=== PATIENT | female | born 1950 | race Caucasian/White ===

== ENCOUNTER 2017-10-19 04:56 | Observation (INO) | payer MEDICARE, OTHER ==
[2017-10-19] MEDS: SOD CHLORIDE 0.9% 1,000 ML IV (06:33)
[2017-10-19] MEDS: LORAZEPAM 2 MG INJ IV (06:33)
[2017-10-19] MEDS: MECLIZINE 12.5 MG TAB PO ×3 (06:33→20:35)
[2017-10-19] MEDS: ONDANSETRON 4 MG INJ IV ×2 (06:33→16:50)
[2017-10-19 06:36] LABS: ADD MAN DIFF? NO
[2017-10-19 06:38] LABS: WHITE BLOOD COUNT 4.1 10^3/ul (4.8-10.8)
[2017-10-19 06:38] LABS: BASOPHILS % 0.7 % (0.0-2.0); EOSINOPHILS # 0.1 10^3/ul (0.0-0.5); EOSINOPHILS % 1.7 % (0.0-7.0); HEMATOCRIT 39.3 % (37.0-47.0); HEMOGLOBIN 13.2 g/dl (12.0-16.0); LYMPHOCYTES # 1.4 10^3/ul (0.8-2.9); LYMPHOCYTES % 34.8 % (15.0-51.0); MEAN CORPUSCULAR HEMOGLOBIN 28.4 pg (29.0-33.0); MEAN CORPUSCULAR HGB CONC 33.6 g/dl (32.0-37.0); MEAN CORPUSCULAR VOLUME 84.5 fl (82.0-101.0); MEAN PLATELET VOLUME 9.2 fl (7.4-10.4); MONOCYTE # 0.3 10^3/ul (0.3-0.9); MONOCYTES % 6.8 % (0.0-11.0); NEUTROPHIL # 2.3 10^3/ul (1.6-7.5); NEUTROPHILS % 55.8 % (39.0-77.0); PLATELET COUNT 241 10^3/UL (140-415); RED BLOOD COUNT 4.65 10^6/ul (4.20-5.40); RED CELL DISTRIBUTION WIDTH 13.3 % (11.5-14.5)
[2017-10-19 06:56] LABS: ANION GAP 11 (8-16); BLOOD UREA NITROGEN 13 mg/dl (7-20); CALCIUM 9.3 mg/dl (8.4-10.2); CARBON DIOXIDE 21 mmol/L (21-31); CHLORIDE 111 mmol/L (97-110); CREATININE 0.66 mg/dl (0.44-1.00); GLUCOSE 150 mg/dl (70-220); POTASSIUM 3.3 mmol/L (3.5-5.1); SODIUM 140 mmol/L (135-144)
[2017-10-19 06:57] LABS: INR 1.03; PROTIME 13.6 Sec (11.9-14.9); PT RATIO 1.1
[2017-10-19 06:58] LABS: PARTIAL THROMBOPLASTIN TIME 24.8 Sec (25.0-35.0)
[2017-10-19 07:29] LABS: ALANINE AMINOTRANSFERASE 22 IU/L (13-69); ALBUMIN 4.1 g/dl (3.3-4.9); ALKALINE PHOSPHATASE 51 IU/L (42-121); ASPARTATE AMINO TRANSFERASE 21 IU/L (15-46); BILIRUBIN,INDIRECT 0.8 mg/dl (0-1.1); BILIRUBIN,TOTAL 0.8 mg/dl (0.2-1.3); LIPASE 131 U/L (23-300); TOTAL PROTEIN 8.2 g/dl (6.1-8.1)
[2017-10-19] MEDS ORDERED: ACETAMINOPHEN 325 MG TAB PO ×2 (09:00→09:30)
[2017-10-19] MEDS ORDERED: ONDANSETRON 4 MG INJ IV (09:30)
[2017-10-19] MEDS ORDERED: NACL 0.9% 3 ML SYG IV (09:30)
[2017-10-19] MEDS ORDERED: MAGNESIUM HYDROXIDE 30ML CUP PO (09:30)
[2017-10-19] MEDS ORDERED: DOCUSATE SODIUM 100 MG CAP PO (09:30)
[2017-10-19] MEDS: ASPIRIN (EC) 325 MG TAB PO (11:29)
[2017-10-19] MEDS: AMOXICILLIN/CLAV 875 MG TAB PO ×2 (11:29→20:35)
[2017-10-19] MEDS: D5W-0.45 NACL + KCL 20 MEQ 1,000 ML IV (11:29)
[2017-10-19] MEDS: METOCLOPRAMIDE 10 MG INJ IV ×2 (11:29→19:45)
[2017-10-19] MEDS: POTASSIUM CHLORIDE (SR) 20 MEQ TAB PO (16:50)
[2017-10-19] MEDS ORDERED: PAROXETINE 10 MG TAB PO (21:00)
[2017-10-20] MEDS: PANTOPRAZOLE (EC) 40 MG TAB PO (05:47)
[2017-10-20 06:09] LABS: ADD MAN DIFF? NO
[2017-10-20 06:23] LABS: BASOPHILS % 0.3 % (0.0-2.0); EOSINOPHILS # 0.1 10^3/ul (0.0-0.5); EOSINOPHILS % 1.2 % (0.0-7.0); HEMATOCRIT 40.4 % (37.0-47.0); HEMOGLOBIN 13.2 g/dl (12.0-16.0); LYMPHOCYTES % 33.5 % (15.0-51.0); MEAN CORPUSCULAR HEMOGLOBIN 28.3 pg (29.0-33.0); MEAN CORPUSCULAR HGB CONC 32.7 g/dl (32.0-37.0); MEAN CORPUSCULAR VOLUME 86.7 fl (82.0-101.0); MEAN PLATELET VOLUME 9.2 fl (7.4-10.4); MONOCYTE # 0.5 10^3/ul (0.3-0.9); MONOCYTES % 7.4 % (0.0-11.0); NEUTROPHIL # 3.5 10^3/ul (1.6-7.5); NEUTROPHILS % 57.3 % (39.0-77.0); PLATELET COUNT 258 10^3/UL (140-415); RED BLOOD COUNT 4.66 10^6/ul (4.20-5.40)
[2017-10-20 06:23] LABS: WHITE BLOOD COUNT 6.1 10^3/ul (4.8-10.8)
[2017-10-20 07:07] LABS: ANION GAP 8 (8-16); BLOOD UREA NITROGEN 7 mg/dl (7-20); CALCIUM 9.1 mg/dl (8.4-10.2); CARBON DIOXIDE 27 mmol/L (21-31); CHLORIDE 112 mmol/L (97-110); CREATININE 0.75 mg/dl (0.44-1.00); GLUCOSE 95 mg/dl (70-220); MAGNESIUM 1.9 mg/dl (1.7-2.5); PHOSPHORUS 3.3 mg/dl (2.5-4.9); POTASSIUM 5.2 mmol/L (3.5-5.1); SODIUM 142 mmol/L (135-144)
[2017-10-20] MEDS: AMOXICILLIN/CLAV 875 MG TAB PO ×2 (08:20→20:18)
[2017-10-20] MEDS: MECLIZINE 12.5 MG TAB PO ×3 (08:21→20:18)
[2017-10-20] MEDS: ASPIRIN (EC) 81 MG TAB PO (08:21)
[2017-10-21] MEDS: PANTOPRAZOLE (EC) 40 MG TAB PO (06:10)
[2017-10-21] MEDS: MECLIZINE 12.5 MG TAB PO ×2 (09:08→12:27)
[2017-10-21] MEDS: ASPIRIN (EC) 81 MG TAB PO (09:08)
[2017-10-21] MEDS: AMOXICILLIN/CLAV 875 MG TAB PO (09:08)
== END 2017-10-21 13:05 | disposition home health service (06) ==
LOC: E/R 04:56 → MS2 09:00
DX: R42 Dizziness and giddiness (principal); R11.2 Nausea with vomiting, unspecified; I10 Essential (primary) hypertension; N63.0 Unspecified lump in unspecified breast; K11.5 Sialolithiasis; E87.5 Hyperkalemia
CPT/HCPCS: 36415; 70450; 70545; 70549; 70553; 74176; 76642; 80048; 80076; 83690; 83735; 84100; 85025; 85610; 85730; 93005; 96374; 96375; 97163; 97167; 99217; 99285-25

== ENCOUNTER 2018-02-24 14:58 | Inpatient (IN) | payer MEDICARE, OTHER ==
[2018-02-24] MEDS: SOD CHLORIDE 0.9% 1,000 ML IV ×2 (15:44→18:20)
[2018-02-24] MEDS: ONDANSETRON 4 MG INJ IV (15:44)
[2018-02-24] MEDS: LIDOCAINE/MYLANTA 40 ML BTL PO (15:44)
[2018-02-24] MEDS: PANTOPRAZOLE 40 MG INJ IV (15:44)
[2018-02-24 15:52] LABS: ADD MAN DIFF? NO
[2018-02-24 15:53] LABS: WHITE BLOOD COUNT 10.8 10^3/ul (4.8-10.8)
[2018-02-24 15:53] LABS: BASOPHILS % 0.2 % (0.0-2.0); EOSINOPHILS % 0.2 % (0.0-7.0); HEMATOCRIT 44.6 % (37.0-47.0); HEMOGLOBIN 14.4 g/dl (12.0-16.0); LYMPHOCYTES # 1.3 10^3/ul (0.8-2.9); LYMPHOCYTES % 11.9 % (15.0-51.0); MEAN CORPUSCULAR HEMOGLOBIN 28.1 pg (29.0-33.0); MEAN CORPUSCULAR HGB CONC 32.3 g/dl (32.0-37.0); MEAN CORPUSCULAR VOLUME 87.1 fl (82.0-101.0); MEAN PLATELET VOLUME 9.4 fl (7.4-10.4); MONOCYTE # 0.5 10^3/ul (0.3-0.9); MONOCYTES % 4.7 % (0.0-11.0); NEUTROPHIL # 8.9 10^3/ul (1.6-7.5); NEUTROPHILS % 82.8 % (39.0-77.0); PLATELET COUNT 199 10^3/UL (140-415); RED BLOOD COUNT 5.12 10^6/ul (4.20-5.40); RED CELL DISTRIBUTION WIDTH 14.7 % (11.5-14.5)
[2018-02-24 16:12] LABS: ALANINE AMINOTRANSFERASE 42 IU/L (13-69); ALBUMIN 3.8 g/dl (3.3-4.9); ALBUMIN/GLOBULIN RATIO 0.84; ALKALINE PHOSPHATASE 57 IU/L (42-121); ANION GAP 10 (5-13); ASPARTATE AMINO TRANSFERASE 100 IU/L (15-46); BILIRUBIN,INDIRECT 0.8 mg/dl (0-1.1); BILIRUBIN,TOTAL 0.8 mg/dl (0.2-1.3); BLOOD UREA NITROGEN 16 mg/dl (7-20); CALCIUM 9.6 mg/dl (8.4-10.2); CARBON DIOXIDE 23 mmol/L (21-31); CHLORIDE 108 mmol/L (97-110); CREATININE 0.69 mg/dl (0.44-1.00); GLUCOSE 135 mg/dl (70-220); POTASSIUM 5.4 mmol/L (3.5-5.1); SODIUM 141 mmol/L (135-144); TOTAL PROTEIN 8.3 g/dl (6.1-8.1)
[2018-02-24 16:24] LABS: TROPONIN-I < 0.012 ng/ml (0.000-0.120)
[2018-02-24 16:47] LABS: LIPASE 40248 U/L (23-300)
[2018-02-24] MEDS: morphine 4 MG/ML VIAL IV (17:01)
[2018-02-24 17:03] LABS: ADD UMIC NO; UR ASCORBIC ACID NEGATIVE (NEGATIVE); UR BILIRUBIN (Dip) NEGATIVE (NEGATIVE); UR BLOOD (Dip) NEGATIVE (NEGATIVE); UR CLARITY CLEAR (CLEAR); UR COLOR YELLOW (YELLOW); UR GLUCOSE (Dip) NEGATIVE (NEGATIVE); UR KETONES (Dip) 1+ mg/dL (NEGATIVE); UR LEUKOCYTE ESTERASE (Dip) NEGATIVE Leu/ul (NEGATIVE); UR NITRITE (Dip) NEGATIVE (NEGATIVE); UR SPECIFIC GRAVITY (Dip) 1.025 (1.003-1.030); UR TOTAL PROTEIN (Dip) NEGATIVE (NEGATIVE); UR UROBILINOGEN (Dip) NEGATIVE (NEGATIVE)
[2018-02-24 17:14] LABS: LACTATE DEHYDROGENASE 760 IU/L (313-618)
[2018-02-24] MEDS ORDERED: ONDANSETRON 4 MG INJ IV (17:30)
[2018-02-24] MEDS ORDERED: ACETAMINOPHEN 325 MG TAB PO ×2 (17:30→18:00)
[2018-02-24] MEDS ORDERED: HYDROCODONE/APAP (5/325) TAB PO (18:00)
[2018-02-24] MEDS ORDERED: NACL 0.9% 3 ML SYG IV (18:00)
[2018-02-24] MEDS: SOD CHLORIDE 0.9% 100 ML (18:04)
[2018-02-24] MEDS: IOHEXOL 300MG/ML 150 ML BTL (18:05)
[2018-02-24] MEDS: SODIUM CHLORIDE 0.9% 1L BAG IV* (18:21)
[2018-02-24 18:39] LABS: HAAIG REFLEX REFLEX FILED
[2018-02-24 19:06] LABS: CHOLESTEROL 205 mg/dl (100-200); LACTIC ACID 1.3 mmol/L (0.5-2.0)
[2018-02-24 19:06] LABS: CHOL/HDL RATIO 3.7 RATIO; HDL CHOLESTEROL 55 mg/dl (33-92); LDL CHOLESTEROL,CALCULATED 134 mg/dl; TRIGLYCERIDES 79 mg/dl (0-149)
[2018-02-24 19:28] LABS: ETHANOL < 10.0 mg/dl
[2018-02-24 19:32] LABS: AMPHETAMINE/METHAMPHETAMINE Negative (NEGATIVE); BARBITURATES Negative (NEGATIVE); BENZODIAZEPINES Negative (NEGATIVE); CANNABINOIDS Negative (NEGATIVE); COCAINE Negative (NEGATIVE); OPIATES Negative (NEGATIVE)
[2018-02-24 19:38] LABS: HEPATITIS B SURFACE ANTIGEN NEGATIVE (NEGATIVE)
[2018-02-24 19:48] LABS: HIV 1&2 ANTIBODY NEGATIVE (NEGATIVE)
[2018-02-24 19:56] LABS: HEPATITIS B CORE ANTIBODY NEGATIVE (NEGATIVE); HEPATITIS C VIRAL ANTIBODY NEGATIVE (NEGATIVE)
[2018-02-24] MEDS: PIPER-TAZO 3.375 GM IV (PMX) 100 ML IVPB (20:13)
[2018-02-24] MEDS: morphine 2 MG INJ IV (21:39)
[2018-02-24] MEDS ORDERED: MEROPENEM 1 GM/50ML(PMX) 50 ML IVPB (22:00)
[2018-02-25] MEDS: SOD CHLORIDE 0.9% 1,000 ML IV ×4 (00:11→17:35)
[2018-02-25] MEDS: ONDANSETRON 4 MG INJ IV ×2 (00:30→13:59)
[2018-02-25] MEDS: PIPER-TAZO 3.375 GM IV (PMX) 100 ML IVPB ×4 (01:14→17:35)
[2018-02-25] MEDS ORDERED: hydrALAzine 20 MG INJ (04:20)
[2018-02-25] MEDS: hydrALAzine 20 MG INJ IV ×3 (04:30→22:31)
[2018-02-25 05:36] LABS: ADD MAN DIFF? NO
[2018-02-25 05:48] LABS: BASOPHILS % 0.1 % (0.0-2.0); HEMATOCRIT 41.8 % (37.0-47.0); HEMOGLOBIN 13.5 g/dl (12.0-16.0); LYMPHOCYTES # 1.1 10^3/ul (0.8-2.9); LYMPHOCYTES % 11.7 % (15.0-51.0); MEAN CORPUSCULAR HEMOGLOBIN 28.1 pg (29.0-33.0); MEAN CORPUSCULAR HGB CONC 32.3 g/dl (32.0-37.0); MEAN CORPUSCULAR VOLUME 86.9 fl (82.0-101.0); MEAN PLATELET VOLUME 9.8 fl (7.4-10.4); MONOCYTE # 0.4 10^3/ul (0.3-0.9); MONOCYTES % 4.5 % (0.0-11.0); NEUTROPHIL # 7.4 10^3/ul (1.6-7.5); PLATELET COUNT 184 10^3/UL (140-415); RED BLOOD COUNT 4.81 10^6/ul (4.20-5.40)
[2018-02-25] MEDS: morphine 2 MG INJ IV ×2 (06:01→13:58)
[2018-02-25] MEDS: PANTOPRAZOLE 40 MG INJ IV (06:01)
[2018-02-25 06:30] LABS: ALANINE AMINOTRANSFERASE 64 IU/L (13-69); ALBUMIN 3.6 g/dl (3.3-4.9); ALBUMIN/GLOBULIN RATIO 0.94; ALKALINE PHOSPHATASE 47 IU/L (42-121); ANION GAP 9 (5-13); ASPARTATE AMINO TRANSFERASE 73 IU/L (15-46); BILIRUBIN,INDIRECT 1.4 mg/dl (0-1.1); BILIRUBIN,TOTAL 1.4 mg/dl (0.2-1.3); BLOOD UREA NITROGEN 12 mg/dl (7-20); CALCIUM 8.4 mg/dl (8.4-10.2); CARBON DIOXIDE 22 mmol/L (21-31); CHLORIDE 112 mmol/L (97-110); CREATININE 0.64 mg/dl (0.44-1.00); GLUCOSE 115 mg/dl (70-220); MAGNESIUM 1.8 mg/dl (1.7-2.5); SODIUM 143 mmol/L (135-144); TOTAL PROTEIN 7.4 g/dl (6.1-8.1)
[2018-02-25 06:31] LABS: POTASSIUM 4.2 mmol/L (3.5-5.1)
[2018-02-25 06:45] LABS: LIPASE 6597 U/L (23-300)
[2018-02-26] MEDS: SOD CHLORIDE 0.9% 1,000 ML IV ×3 (00:26→09:07)
[2018-02-26] MEDS: PIPER-TAZO 3.375 GM IV (PMX) 100 ML IVPB ×4 (00:26→17:51)
[2018-02-26] MEDS: PANTOPRAZOLE 40 MG INJ IV (05:37)
[2018-02-26 06:33] LABS: ADD MAN DIFF? NO
[2018-02-26 06:38] LABS: WHITE BLOOD COUNT 15.8 10^3/ul (4.8-10.8)
[2018-02-26 06:38] LABS: BASOPHILS % 0.1 % (0.0-2.0); HEMATOCRIT 42.6 % (37.0-47.0); LYMPHOCYTES % 6.3 % (15.0-51.0); MEAN CORPUSCULAR HEMOGLOBIN 28.3 pg (29.0-33.0); MEAN CORPUSCULAR HGB CONC 32.9 g/dl (32.0-37.0); MEAN CORPUSCULAR VOLUME 86.2 fl (82.0-101.0); MEAN PLATELET VOLUME 10.3 fl (7.4-10.4); MONOCYTE # 0.9 10^3/ul (0.3-0.9); MONOCYTES % 5.8 % (0.0-11.0); NEUTROPHIL # 13.8 10^3/ul (1.6-7.5); NEUTROPHILS % 87.2 % (39.0-77.0); PLATELET COUNT 180 10^3/UL (140-415); RED BLOOD COUNT 4.94 10^6/ul (4.20-5.40); RED CELL DISTRIBUTION WIDTH 15.2 % (11.5-14.5)
[2018-02-26 07:06] LABS: ANION GAP 10 (5-13); BLOOD UREA NITROGEN 9 mg/dl (7-20); CALCIUM 8.6 mg/dl (8.4-10.2); CARBON DIOXIDE 19 mmol/L (21-31); CHLORIDE 107 mmol/L (97-110); CREATININE 0.57 mg/dl (0.44-1.00); Estimated GFR > 60 mL/min (>60); GLUCOSE 107 mg/dl (70-220); MAGNESIUM 1.6 mg/dl (1.7-2.5); PHOSPHORUS 2.4 mg/dl (2.5-4.9); POTASSIUM 3.5 mmol/L (3.5-5.1); SODIUM 136 mmol/L (135-144)
[2018-02-26 08:42] LABS: LIPASE 883 U/L (23-300)
[2018-02-26] MEDS ORDERED: POTASSIUM CHLORIDE 50 ML IVPB (10:00)
[2018-02-26] MEDS: DEXTROSE 5%-0.45% NACL 1,000 ML IV ×2 (11:08→17:51)
[2018-02-26] MEDS: MAGNESIUM SULFATE 2 GM/50 ML 50 ML IVPB (11:58)
[2018-02-26 14:49] LABS: PROTIME 16.4 Sec (11.9-14.9); PT RATIO 1.3
[2018-02-26 14:52] LABS: ALANINE AMINOTRANSFERASE 43 IU/L (13-69); ALBUMIN 3.3 g/dl (3.3-4.9); ALKALINE PHOSPHATASE 45 IU/L (42-121); ASPARTATE AMINO TRANSFERASE 35 IU/L (15-46); BILIRUBIN,INDIRECT 1.7 mg/dl (0-1.1); BILIRUBIN,TOTAL 1.7 mg/dl (0.2-1.3); TOTAL PROTEIN 6.9 g/dl (6.1-8.1)
[2018-02-26] MEDS: DEXTROSE 5% IV (14:57)
[2018-02-26] MEDS: POTASSIUM CHLORIDE IV (14:57)
[2018-02-26] MEDS: hydrALAzine 20 MG INJ IV (15:16)
[2018-02-26] MEDS: INDOMETHACIN 50 MG SUPP PR (16:00)
[2018-02-27] MEDS: PIPER-TAZO 3.375 GM IV (PMX) 100 ML IVPB ×4 (00:34→18:00)
[2018-02-27] MEDS: DEXTROSE 5%-0.45% NACL 1,000 ML IV ×4 (00:34→19:20)
[2018-02-27] MEDS: hydrALAzine 20 MG INJ IV (00:43)
[2018-02-27] MEDS: PANTOPRAZOLE 40 MG INJ IV (06:28)
[2018-02-27 06:43] LABS: ADD MAN DIFF? NO
[2018-02-27 06:51] LABS: BASOPHILS % 0.1 % (0.0-2.0); HEMATOCRIT 39.8 % (37.0-47.0); HEMOGLOBIN 13.5 g/dl (12.0-16.0); LYMPHOCYTES # 1.3 10^3/ul (0.8-2.9); LYMPHOCYTES % 8.3 % (15.0-51.0); MEAN CORPUSCULAR HEMOGLOBIN 28.3 pg (29.0-33.0); MEAN CORPUSCULAR HGB CONC 33.9 g/dl (32.0-37.0); MEAN CORPUSCULAR VOLUME 83.4 fl (82.0-101.0); MEAN PLATELET VOLUME 10.1 fl (7.4-10.4); MONOCYTE # 0.9 10^3/ul (0.3-0.9); MONOCYTES % 5.6 % (0.0-11.0); NEUTROPHIL # 13.8 10^3/ul (1.6-7.5); NEUTROPHILS % 85.4 % (39.0-77.0); PLATELET COUNT 213 10^3/UL (140-415); RED BLOOD COUNT 4.77 10^6/ul (4.20-5.40); RED CELL DISTRIBUTION WIDTH 15.1 % (11.5-14.5)
[2018-02-27 06:51] LABS: WHITE BLOOD COUNT 16.1 10^3/ul (4.8-10.8)
[2018-02-27 07:08] LABS: INR 1.23; PROTIME 15.7 Sec (11.9-14.9); PT RATIO 1.2
[2018-02-27 07:13] LABS: ALANINE AMINOTRANSFERASE 36 IU/L (13-69); ALKALINE PHOSPHATASE 50 IU/L (42-121); ASPARTATE AMINO TRANSFERASE 32 IU/L (15-46); BILIRUBIN,INDIRECT 1.5 mg/dl (0-1.1); BILIRUBIN,TOTAL 1.5 mg/dl (0.2-1.3); TOTAL PROTEIN 6.4 g/dl (6.1-8.1)
[2018-02-27 07:17] LABS: ANION GAP 9 (5-13); BLOOD UREA NITROGEN 8 mg/dl (7-20); CARBON DIOXIDE 22 mmol/L (21-31); CHLORIDE 103 mmol/L (97-110); Estimated GFR > 60 mL/min (>60); GLUCOSE 142 mg/dl (70-220); MAGNESIUM 2.1 mg/dl (1.7-2.5); PHOSPHORUS 1.3 mg/dl (2.5-4.9); SODIUM 134 mmol/L (135-144)
[2018-02-27 07:49] LABS: LIPASE 224 U/L (23-300)
[2018-02-27] MEDS: POTASSIUM CHLORIDE 100 ML IVPB ×4 (10:45→16:19)
[2018-02-27] MEDS: SODIUM PHOSPHATE 20 MEQ in SOD CHLORIDE 0.9% 250 ML IVPB (13:16)
[2018-02-27] MEDS ORDERED: IOHEXOL 300MG/ML 30 ML BTL (16:07)
[2018-02-27] MEDS ORDERED: PROPOFOL 20 ML (16:41)
[2018-02-27] MEDS ORDERED: MIDAZOLAM 1 MG/ML 2 ML INJ (16:41)
[2018-02-27] MEDS ORDERED: ROCURONIUM 50 MG INJ (16:41)
[2018-02-27] MEDS ORDERED: FENTAnyl 50 MCG/ML VIAL (16:41)
[2018-02-27] MEDS ORDERED: CEFAZOLIN 1 GM INJ (16:41)
[2018-02-27] MEDS ORDERED: FENTAnyl 50 MCG/ML VIAL IV ×2 (17:00)
[2018-02-27] MEDS ORDERED: HYDROmorphONE 1 MG/5 ML IV SYRINGE IV ×2 (17:00)
[2018-02-27] MEDS ORDERED: DIPHENHYDRAMINE 50 MG INJ IV (17:00)
[2018-02-27] MEDS ORDERED: ONDANSETRON 4 MG INJ IV (17:00)
[2018-02-27] MEDS ORDERED: EPHEDrine SULFATE 50 MG/5 ML SYG IV (17:00)
[2018-02-27] MEDS ORDERED: LABETALOL HCL 20MG INJ IV (17:00)
[2018-02-27] MEDS ORDERED: MEPERIDINE 25 MG INJ IV (17:00)
[2018-02-27] MEDS ORDERED: METOCLOPRAMIDE 10 MG INJ IV (17:00)
[2018-02-27] MEDS ORDERED: hydrALAzine 20 MG INJ IV (17:00)
[2018-02-27] MEDS ORDERED: DEXAMETHASONE 4 MG/ML 1 ML INJ (17:03)
[2018-02-27] MEDS ORDERED: METOCLOPRAMIDE 10 MG INJ (17:03)
[2018-02-27] MEDS ORDERED: ONDANSETRON 4 MG INJ (17:03)
[2018-02-27] MEDS ORDERED: KETOROLAC 30 MG INJ (17:03)
[2018-02-27] MEDS ORDERED: PHENYLephrine (100 MCG/ML) 5ML SYG (17:15)
[2018-02-27] MEDS ORDERED: PHENYLephrine 10 MG INJ (17:15)
[2018-02-27] MEDS ORDERED: SUGAMMADEX SODIUM 200 MG/2 ML VIAL IV (17:16)
[2018-02-27] MEDS: INDOMETHACIN 50 MG SUPP PR (17:30)
[2018-02-27] MEDS ORDERED: CEFAZOLIN 2 GM/50 ML (PMX) 50 ML IVPB (17:30)
[2018-02-28] MEDS: PIPER-TAZO 3.375 GM IV (PMX) 100 ML IVPB ×2 (01:14→05:58)
[2018-02-28] MEDS: DEXTROSE 5%-0.45% NACL 1,000 ML IV (03:40)
[2018-02-28] MEDS: PANTOPRAZOLE 40 MG INJ IV (05:58)
[2018-02-28 07:01] LABS: ADD MAN DIFF? NO
[2018-02-28 07:07] LABS: BASOPHILS % 0.1 % (0.0-2.0); HEMATOCRIT 36.3 % (37.0-47.0); HEMOGLOBIN 12.1 g/dl (12.0-16.0); LYMPHOCYTES # 0.9 10^3/ul (0.8-2.9); LYMPHOCYTES % 9.5 % (15.0-51.0); MEAN CORPUSCULAR HEMOGLOBIN 28.1 pg (29.0-33.0); MEAN CORPUSCULAR HGB CONC 33.3 g/dl (32.0-37.0); MEAN CORPUSCULAR VOLUME 84.4 fl (82.0-101.0); MEAN PLATELET VOLUME 9.8 fl (7.4-10.4); MONOCYTE # 0.6 10^3/ul (0.3-0.9); NEUTROPHIL # 7.7 10^3/ul (1.6-7.5); PLATELET COUNT 217 10^3/UL (140-415); RED CELL DISTRIBUTION WIDTH 15.2 % (11.5-14.5)
[2018-02-28 07:07] LABS: WHITE BLOOD COUNT 9.2 10^3/ul (4.8-10.8)
[2018-02-28 07:25] LABS: MAGNESIUM 2.1 mg/dl (1.7-2.5)
[2018-02-28 07:29] LABS: ALANINE AMINOTRANSFERASE 112 IU/L (13-69); ALBUMIN 2.5 g/dl (3.3-4.9); ALBUMIN/GLOBULIN RATIO 0.73; ALKALINE PHOSPHATASE 153 IU/L (42-121); ANION GAP 7 (5-13); ASPARTATE AMINO TRANSFERASE 176 IU/L (15-46); BILIRUBIN,INDIRECT 1.2 mg/dl (0-1.1); BILIRUBIN,TOTAL 1.7 mg/dl (0.2-1.3); BLOOD UREA NITROGEN 13 mg/dl (7-20); CALCIUM 8.2 mg/dl (8.4-10.2); CARBON DIOXIDE 26 mmol/L (21-31); CHLORIDE 107 mmol/L (97-110); Estimated GFR > 60 mL/min (>60); GLUCOSE 146 mg/dl (70-220); POTASSIUM 3.2 mmol/L (3.5-5.1); SODIUM 140 mmol/L (135-144); TOTAL PROTEIN 5.9 g/dl (6.1-8.1)
[2018-02-28] MEDS: SOD CHLORIDE 0.45% 1,000 ML IV (10:48)
[2018-02-28] MEDS: POTASSIUM CHLORIDE 20 MEQ POWDER FOR ORAL SOLN PO (10:52)
[2018-03-01] MEDS: hydrALAzine 20 MG INJ IV (02:07)
[2018-03-01 05:14] LABS: ADD MAN DIFF? NO
[2018-03-01 05:21] LABS: WHITE BLOOD COUNT 10.1 10^3/ul (4.8-10.8)
[2018-03-01 05:21] LABS: BASOPHILS % 0.1 % (0.0-2.0); EOSINOPHILS # 0.1 10^3/ul (0.0-0.5); EOSINOPHILS % 1.4 % (0.0-7.0); HEMATOCRIT 40.5 % (37.0-47.0); HEMOGLOBIN 13.4 g/dl (12.0-16.0); LYMPHOCYTES # 1.6 10^3/ul (0.8-2.9); LYMPHOCYTES % 15.4 % (15.0-51.0); MEAN CORPUSCULAR HEMOGLOBIN 28.2 pg (29.0-33.0); MEAN CORPUSCULAR HGB CONC 33.1 g/dl (32.0-37.0); MEAN CORPUSCULAR VOLUME 85.1 fl (82.0-101.0); MEAN PLATELET VOLUME 9.2 fl (7.4-10.4); MONOCYTE # 0.9 10^3/ul (0.3-0.9); MONOCYTES % 8.5 % (0.0-11.0); NEUTROPHIL # 7.5 10^3/ul (1.6-7.5); NEUTROPHILS % 74.1 % (39.0-77.0); PLATELET COUNT 251 10^3/UL (140-415); RED BLOOD COUNT 4.76 10^6/ul (4.20-5.40); RED CELL DISTRIBUTION WIDTH 15.1 % (11.5-14.5)
[2018-03-01] MEDS: SOD CHLORIDE 0.45% 1,000 ML IV (05:33)
[2018-03-01] MEDS: PANTOPRAZOLE 40 MG INJ IV (05:33)
[2018-03-01 05:55] LABS: ALANINE AMINOTRANSFERASE 97 IU/L (13-69); ALBUMIN 2.9 g/dl (3.3-4.9); ALKALINE PHOSPHATASE 134 IU/L (42-121); ANION GAP 8 (5-13); ASPARTATE AMINO TRANSFERASE 65 IU/L (15-46); BILIRUBIN,INDIRECT 0.6 mg/dl (0-1.1); BILIRUBIN,TOTAL 0.6 mg/dl (0.2-1.3); BLOOD UREA NITROGEN 15 mg/dl (7-20); CALCIUM 8.6 mg/dl (8.4-10.2); CARBON DIOXIDE 25 mmol/L (21-31); CHLORIDE 109 mmol/L (97-110); CREATININE 0.67 mg/dl (0.44-1.00); Estimated GFR > 60 mL/min (>60); GLUCOSE 91 mg/dl (70-220); PHOSPHORUS 1.9 mg/dl (2.5-4.9); POTASSIUM 3.2 mmol/L (3.5-5.1); SODIUM 142 mmol/L (135-144); TOTAL PROTEIN 6.5 g/dl (6.1-8.1)
[2018-03-01] MEDS: POTASSIUM CHLORIDE 20 MEQ POWDER FOR ORAL SOLN PO (09:03)
[2018-03-01] MEDS: NEUTRA-PHOS 250 MG PACKET PO (11:27)
== END 2018-03-01 12:45 | disposition home health service (06) | DRG 439 ==
LOC: E/R 14:58 → PP2 17:19
PROC: 0F798ZZ Dilation of Common Bile Duct, Via Natural or Artificial Opening Endoscopic (ICD-10-PCS; principal; 2018-02-27 16:40)
PROC: BF10YZZ Fluoroscopy of Bile Ducts using Other Contrast (ICD-10-PCS; 2018-02-27 16:40)
DX: K85.10 Biliary acute pancreatitis without necrosis or infection (principal); K81.0 Acute cholecystitis; E80.6 Other disorders of bilirubin metabolism; F39 Unspecified mood [affective] disorder; K83.8 Other specified diseases of biliary tract; R74.0 Nonspecific elevation of levels of transaminase and lactic acid dehydrogenase [LDH]; Z87.19 Personal history of other diseases of the digestive system; Z91.14 Patient's other noncompliance with medication regimen
CPT/HCPCS: 36415; 74177; 74181; 74330; 76705; 78226; 80048; 80053; 80061; 80076; 80307; 81003; 83605; 83615; 83690; 83735; 84100; 84484; 85025; 85610; 86703; 86704; 86709; 86803; 87040; 87340; 93005; 96374; 96375; 99285-25